=== PATIENT | female | born 1965 | race Caucasian/White ===

== ENCOUNTER → 2017-10-25 | Outpatient (CLI) | payer BC ==
[~2017-10-25] MED LIST: ALB18R INH; ASPI-692 PO; BIOT1TAB13 PO; CYAN500T54 PO; LORA10CA3 PO; MV C PO
--- NOTE | 2017-10-25 08:30 | EKG ---
FACILITY: [facility] PATIENT NAME: ALMA DUMONT : [id number] MR: [id number] V: [id number] EXAM DATE: ORDERING PHYSICIAN: JOVANI DÍAZ TECHNOLOGIST: PRÉEZ Cha Reason : PRE-OP R KNEE Blood Pressure : / mmHG Vent. Rate : 057 BPM Atrial Rate : 057 BPM P-R Int : 158 ms QRS Dur : 090 ms QT Int : 400 ms P-R-T Axes : 062 074 076 degrees QTc Int : 389 ms Sinus bradycardia Possible Left atrial enlargement Borderline ECG When compared with ECG of 21-APR-2015 20:23, Previous ECG has undetermined rhythm, needs review Confirmed by JOVANI GREGORIO ([id number]) on 10/27/2017 7:42:58 AM Referred By: BRE Confirmed By:JOVANI GREGORIO
[2017-10-25 08:39] LABS: PLATELET COUNT, AUTOMATED 385 K/uL (150-450)
== END ==
LOC: LAB 08:04
PROVIDERS: ATTEND Anesthesiology
DX: Z01.812 Encounter for preprocedural laboratory examination (principal); Z01.810 Encounter for preprocedural cardiovascular examination; S83.241A Other tear of medial meniscus, current injury, right knee, initial encounter; R00.1 Bradycardia, unspecified
CPT/HCPCS: 36415; 85025; 93005